=== PATIENT | female | born 1965 | race American Indian/Alaskan Native ===

== ENCOUNTER 2017-04-04 13:42 | Outpatient (CLI) | payer BC ==
--- NOTE | 2017-04-04 14:45 | Mammography Report ---
Bilateral mammogram: No previous studies are available. CAD study utilized. Findings: Predominance adipose tissue bilaterally. No mass or microcalcification. Benign axillary nodes. Impression: Benign findings. Annual followup recommended. BI-RADS CATEGORY: 2 = Benign ACR BI-RADS MAMMOGRAPHIC CODES: 0 = Needs additional imaging evaluation; 1 = Negative; 2 = Benign; 3 = Probably benign; 4 = Suspicious; 5 = Malignant; 6 = Known biopsy-proven malignancy COMMENT: 1. Dense breast tissue, i.e., adenosis, fibrocystic changes, etc., may obscure an underlying neoplasm. 2. Approximately 10% of cancers are not detected with mammography. 3. A negative mammography report should not delay biopsy if a clinically suspicious mass is present. COMMENT: Patient follow-up letters are generated in [employer].
== END 2017-04-04 13:43 | disposition home or self-care (01) ==
LOC: SPVWC 13:42
PROVIDERS: ATTEND Obstetrics & Gynecology Gynecology
DX: Z12.31 Encounter for screening mammogram for malignant neoplasm of breast (principal)
CPT/HCPCS: 77067; G0202

== ENCOUNTER → 2018-06-16 | Outpatient (CLI) | payer BC ==
--- NOTE | 2018-06-17 13:10 | Mammography Report ---
BILATERAL DIGITAL SCREENING MAMMOGRAM with CAD: 06/16/18 16:05:00 CLINICAL: Routine screening. COMPARISON:04/04/17 FINDINGS: The breasts are almost entirely fatty. Left asymmetries on the MLO view require additional imaging.No architectural distortion or suspicious calcifications.The right breast is negative. IMPRESSION: Left asymmetries requiring further workup. BI-RADS CATEGORY: 0 -- Additional Imaging Evaluation Required RECOMMENDATION: Recall for left exaggerated CC , LM, spot magnification MLO views and left breast ultrasound if needed. ACR BI-RADS MAMMOGRAPHIC CODES: 0 = Needs additional imaging evaluation; 1 = Negative; 2 = Benign; 3 = Probably benign; 4 = Suspicious; 5 = Malignant; 6 = Known biopsy-proven malignancy COMMENT: 1. Dense breast tissue, i.e., adenosis, fibrocystic changes, etc., may obscure an underlying neoplasm. 2. Approximately 10% of cancers are not detected with mammography. 3. A negative mammography report should not delay biopsy if a clinically suspicious mass is present. COMMENT: Patient follow-up letters are generated via our [employer] application.
== END | disposition home or self-care (01) ==
LOC: SPVWC 16:05
PROVIDERS: ATTEND Obstetrics & Gynecology Gynecology
DX: Z12.31 Encounter for screening mammogram for malignant neoplasm of breast (principal)
CPT/HCPCS: 77067

== ENCOUNTER 2018-07-21 05:59 | Observation (INO) | payer BC ==
[2018-07-16 10:29] LABS: Basophils # (Auto) 0.1 K/mm3 (0.0-0.1); Basophils % (Auto) 0.8 % (0.0-1.8); Eosinophils # (Auto) 0.1 K/mm3 (0.0-0.4); Eosinophils % (Auto) 0.8 % (0.0-4.3); Hematocrit 41.7 % (30.3-42.9); Hemoglobin 14.3 gm/dl (10.1-14.3); Lymphocytes # (Auto) 1.6 K/mm3 (1.2-5.4); Mean Corpuscular HGB Conc 34 % (30-34); Mean Corpuscular Hemoglobin 31 pg (28-32); Mean Corpuscular Volume 90 fl (79-97); Monocytes # (Auto) 0.7 K/mm3 (0.0-0.8); Monocytes % (Auto) 8.3 % (0.0-7.3); Platelet Count 230 K/mm3 (140-440); Red Blood Count 4.65 M/mm3 (3.65-5.03); Red Cell Distribution Width 13.6 % (13.2-15.2)
[2018-07-16 10:39] LABS: BUN/Creatinine Ratio 13; Blood Urea Nitrogen 9 mg/dL (7-17); Calcium 9.3 mg/dL (8.4-10.2); Hemolysis Index 6
--- NOTE | 2018-07-17 06:39 | Anesthesia Consultation ---
Anesthesia Consult and Med Hx Date of service: 07/17/18 - Airway Anesthetic Teeth Evaluation: Good ROM Head & Neck: Adequate Mental/Hyoid Distance: Adequate Mallampati Class: Class I Intubation Access Assessment: Good - Pulmonary Exam CTA: Yes - Cardiac Exam Cardiac Exam: RRR - Pre-Operative Health Status ASA Pre-Surgery Classification: ASA2 Proposed Anesthetic Plan: General Nerve Block: TAP block - Central Nervous System Hx Psychiatric Problems: No - Other Systems Hx Alcohol Use: Yes (Occas) Hx Cancer: No
--- NOTE | 2018-07-20 20:11 | History and Physical Report ---
History of Present Illness Date of examination: 07/13/18 Date of admission: 07/21/18 Chief complaint: irregular vaginal bleeding History of present illness: Pt presents with several months of vaginal bleeding that has been irregular. She has been on HRT for a number of years due to having both ovaries removed several several years ago and years apart. For several years she did not have a period until recently. Sono and embx were normal. Pt desires to d/c combined HRT and desires removal of the uterus at this time. All risk, benefits and alternatives were d/w pt and questions were addressed and answered. she desires to have LAVH. Consents have been signed and placed on the chart. Past History Past Surgical History: other (bilateral oopherectomy) Medications and Allergies Allergies Allergy/AdvReac Type Severity Reaction Status Date / Time No Known Allergies Allergy Unverified 07/14/18 11:16 Home Medications Medication Instructions Recorded Confirmed Last Taken Type [place]-3 Fatty Acids [Super Twin 1,250 mg PO DAILY 07/14/18 07/14/18 Unknown History Epa-Dha] Progesterone, Micronized 1 cap PO DAILY 07/14/18 07/14/18 Unknown History [Progesterone] Active Meds: Active Medications Cefazolin Sodium (Ancef/Sterile Water 2 Gm/20 Ml) 2 gm in 20 mls @ 80 mls/hr IV PREOP NR; Protocol Stop: 07/21/18 23:59 - Vital Signs Vital signs: Vital Signs Temp Pulse Resp BP 97.8 F 72 16 118/78 07/16/18 09:50 07/16/18 09:50 07/16/18 09:50 07/16/18 09:50 Temp Pulse Resp BP Pulse Ox 97.8 F 72 16 118/78 07/16/18 09:50 07/16/18 09:50 07/16/18 09:50 07/16/18 09:50 - Physical Exam Breasts: Positive: deferred Cardiovascular: Normal S1, Normal S2 Lungs: Positive: Clear to auscultation, Normal air movement Abdomen: Positive: normal appearance, soft. Negative: distention, tenderness, guarding Genitourinary (Female): Positive: normal external genitalia, normal perenium Vagina: Positive: normal moisture Uterus: Positive: normal size Extremities: Positive: normal. Negative: tenderness, edema Deep Tendon Reflex Grade: Normal +2 Results Result Diagrams: 07/16/18 10:00 07/16/18 10:00 All other labs normal. Assessment and Plan - Patient Problems (1) Post-menopausal bleeding Status: Acute Plan to address problem: -admit and prepare for lavh -all risk, benefits and alternatives were d/w pt and questions were addressed and answered.
[~2018-07-21 05:59] MED LIST: ANCEF/STERILE WATER 2 GM/20 ML 2 GM/20 ML SYRINGE IV NR
[2018-07-21] MEDS ORDERED: DILAUDID ONE (06:58)
[2018-07-21] MEDS ORDERED: DIPRIVAN 10 MG/ML IV ONE (06:58)
[2018-07-21] MEDS ORDERED: LACTATED RINGERS 1,000 ML IV SCH (06:59)
[2018-07-21] MEDS ORDERED: LACTATED RINGERS 1,000 ML ONE (07:10)
[2018-07-21] MEDS ORDERED: DECADRON IV NR (07:27)
[2018-07-21] MEDS ORDERED: PEPCID IV NR (07:27)
[2018-07-21] MEDS ORDERED: NACL 0.9% 100 ML ONE (07:30)
[2018-07-21] MEDS ORDERED: MARCAINE 0.5% INFILTRATI ONE ×2 (07:30→09:08)
[2018-07-21] MEDS ORDERED: Vasostrict ONE (07:30)
[2018-07-21] MEDS ORDERED: DILAUDID IV PRN ×2 (07:54)
[2018-07-21] MEDS ORDERED: TORADOL IV PRN (07:54)
[2018-07-21] MEDS ORDERED: ZOFRAN IV PRN ×2 (07:54→12:00)
[2018-07-21] MEDS ORDERED: TYLENOL PO PRN (07:54)
[2018-07-21] MEDS ORDERED: VERSED IV NR (08:00)
[2018-07-21] MEDS ORDERED: XYLOCAINE MPF 2% ONE (08:46)
[2018-07-21] MEDS ORDERED: ZEMURON IV ONE (08:46)
[2018-07-21] MEDS ORDERED: ZOFRAN ONE (08:46)
[2018-07-21] MEDS ORDERED: QUELICIN ONE (08:46)
[2018-07-21] MEDS ORDERED: DECADRON ONE (08:47)
[2018-07-21] MEDS ORDERED: Vasostrict IM ONE (09:08)
[2018-07-21] MEDS ORDERED: NACL 0.9% IR ONE (09:09)
[2018-07-21] MEDS ORDERED: NACL 0.9% IV ONE (09:09)
[2018-07-21] MEDS ORDERED: NACL 0.9% 1000 ML 1,000 ML ONE (09:15)
[2018-07-21] MEDS ORDERED: ROBINUL ONE (10:17)
[2018-07-21] MEDS ORDERED: BLOXIVERZ ONE (10:18)
[2018-07-21] MEDS ORDERED: TORADOL ONE (10:27)
[2018-07-21] MEDS ORDERED: MORPHINE IV PRN (10:41)
--- NOTE | 2018-07-21 10:41 | Operative Report ---
Operative Report Operative Report: Date of procedure: 07/21/2018 Pre-operative diagnosis: Post menopausal bleeding Post-operative diagnosis: Same Procedure name(s): Laparoscopic assisted vaginal hysterectomy Surgeon: Kaylee Castellanos MD Restaurant Crew Member: Dr. Hina Dixon Anesthesia: Gen. endotracheal anesthesia EBL: 50 mL Urine output: 300 mL of clear urine out at the end of the procedure Fluids: 1200 mL Findings: Evidence of absence of ovaries and tubes bilaterally. Grossly normal uterus. Female adhesions of the omentum to the uterine fundus. Indications: Patient presents with several years of being on HRT after having both ovaries removed. Patient noted to have vaginal bleeding that was getting progressively heavier with being on HRT. Patient desired definitive therapy with removal of uterus. Procedure: Patient was taken to the operating room where she was placed under general endotracheal anesthesia. She was then prepped and draped in sterile fashion. It was at this point that the large [employer] uterine manipulator was placed inside of the uterus after the uterus was sounded to approximately 9 cm. Dangelo catheter was also placed at this time. Attention was then turned to the umbilicus in which a supraumbilical incision was made. Under direct visualization the 5 mm trocar was placed inside the peritoneum the peritoneum was then insufflated. As at this point that the laparoscopic portion of the procedure was performed. 2 lateral 5 mm ports were also placed under direct visualization. Using the tripolar instrument the upper pedicles were cauterized and transected to the including round ligament with excellent hemostasis noted bilaterally. Attention was then turned vaginally. A weighted speculum was placed into the vagina and the cervix was grasped with a single-tooth tenaculum 2. The cervix was then injected circumferentially with Pitressin. The cervix was then circumferentially incised with the scalpel and the bladder dissected off of the pubovesical cervical fascia anteriorly with a sponge stick and Metzenbaum scissors. The same procedure was performed posteriorly and the posterior cul-de-sac was entered into sharply without difficulty. At this point a Keisha Clamp was placed over the uterosacral ligaments on either side. These were then transected and suture ligated with 0 Vicryl. Hemostasis was assured. The cardinal ligaments were then clamped on both sides transected and suture ligated in similar fashion. The uterine arteries were then serially clamped with Keisha clamps transected and suture ligated on both sides. Excellent hemostasis was visualized. After it was clear that the uterus had been completely from all pedicles the uterus was removed vaginally intact with cervix intact. The vaginal cuff angles were closed with figure of 8 stitches of 0 Vicryl on both sides. The peritoneum was incorporated in the stitching of the vaginal cuff. A series of interrupted figure of 8 sutures using 0 Vicryl were used to close the entire vaginal cuff. Excellent hemostasis was noted. The vagina was then irrigated copiously. Attention was then turned laparoscopically at which time Again all pedicles were noted to be hemostatic. The ureters were identified bilaterally with peristalsis noted bilaterally. All instruments were then removed from the abdomen and the vagina. All gas was released from the abdomen. The abdominal incisions were closed using 4-0 Monocryl. All of the abdominal incisions were injected with Marcaine without epi. Patient tolerated the procedure well sponge lap and needle counts were all correct 3 the patient was taken to the recovery room awake and in stable condition.
[2018-07-21] MEDS: NORCO 5/325 PO PRN (11:29)
[2018-07-21] MEDS: D5LR 1,000 ML IV SCH ×2 (11:44→20:38)
[2018-07-21] MEDS ORDERED: ANCEF/NS 1 GM/50 ML 1 GM/50 ML BAG IV SCH (14:00)
[2018-07-21] MEDS: ANCEF/NS 1 GM/50 ML 1 GM/50 ML BAG IV SCH (17:34)
[2018-07-21] MEDS: TORADOL IV SCH (22:24)
[2018-07-22] MEDS: D5LR 1,000 ML IV SCH (02:27)
[2018-07-22] MEDS: ANCEF/NS 1 GM/50 ML 1 GM/50 ML BAG IV SCH (02:33)
[2018-07-22] MEDS: TORADOL IV SCH (04:18)
[2018-07-22 05:38] LABS: Hematocrit 36.8 % (30.3-42.9); Hemoglobin 12.4 gm/dl (10.1-14.3)
--- NOTE | 2018-07-22 09:02 | Progress Note ---
Assessment and Plan - Patient Problems (1) Post-menopausal bleeding Current Visit: No Status: Acute (2) S/P laparoscopic assisted vaginal hysterectomy (LAVH) Current Visit: Yes Status: Acute Plan to address problem: -ROUTINE POST OP CARE -D/C HOME TODAY Subjective - Subjective Date of service: 07/22/18 Principal diagnosis: POD #1 s/p LAVH Interval history: Pt presents with several months of vaginal bleeding that has been irregular. She has been on HRT for a number of years due to having both ovaries removed several several years ago and years apart. For several years she did not have a period until recently. Sono and embx were normal. Pt desires to d/c combined HRT and desires removal of the uterus at this time. All risk, benefits and alternatives were d/w pt and questions were addressed and answered. she desires to have LAVH. Consents have been signed and placed on the chart. Patient reports: appetite normal, voiding normally, pain well controlled, flatus , no dizzy ambulation Objective - Vital Signs Latest vital signs: Vital Signs Temp Pulse Resp BP BP Pulse Ox 07/22/18 04:00 98.7 F 81 18 121/78 07/22/18 00:00 98.7 F 78 16 114/78 07/21/18 19:30 98.7 F 77 18 109/69 07/21/18 15:50 97.2 F L 95 H 18 112/61 97 07/21/18 12:24 97.6 F 68 16 124/59 100 07/21/18 11:45 97.6 F 65 12 116/58 100 07/21/18 11:30 72 14 106/55 100 07/21/18 11:29 12 07/21/18 11:15 67 14 116/61 99 07/21/18 11:05 62 16 115/60 100 07/21/18 11:00 63 63 H 113/59 100 07/21/18 10:50 61 13 112/53 99 07/21/18 10:45 63 14 109/57 99 07/21/18 10:43 97.5 F L 66 18 111/50 99 Intake and Output 07/21/18 07/22/18 07/22/18 22:59 06:59 14:59 Intake Total 1050 1027.083 Output Total 2800 Balance 1050 -1772.917 Intake: IV 1050 727.083 ANCEF/NS 1 GM/50 ML 1 gm 50 In 50 ml @ 100 mls/hr IV Q8H DAVONTE Rx#:[id number] D5lr 1,000 ml @ 125 mls/ 1000 727.083 hr IV DIRECT DAVONTE Rx#: [id number] Intake, Free Water 300 Output: Urine 2800 Indwelling Catheter 2800 Other: Total, Output Amount 1200 Voiding Method Indwelling Catheter - Exam Cardiovascular: Present: Normal S1, Normal S2 Lungs: Present: Clear to auscultation, Normal air movement Abdomen: Present: normal appearance, soft, normal bowel sounds. Absent: distention, tenderness, guarding Extremities: Present: normal. Absent: tenderness, edema Incision: Present: normal, dry, intact (OPEN TO AIR)
--- NOTE | 2018-07-22 09:04 | Discharge Summary ---
Providers - Providers Date of Admission: 07/21/18 10:42 Date of discharge: 07/22/18 Attending physician: SIM SMITH Primary care physician: [facility] Hospitalization Reason for admission: other (lavh) Procedure: other (LAVH) Incision: normal, dry, intact Hospital course: Pt doing well and desires to go home today. + toleration of her regular diet this am w/o nausea. h/h is stable. Will d/c home today. Condition at discharge: Good Disposition: DC-01 TO HOME OR SELFCARE - Discharge Diagnoses (1) Post-menopausal bleeding Status: Acute (2) S/P laparoscopic assisted vaginal hysterectomy (LAVH) Status: Acute Plan - Discharge Medications Prescriptions: Ibuprofen 800 mg PO Q6HR #30 tablet oxyCODONE /ACETAMINOPHEN [Percocet 5/325] 1 tab PO Q4HR #30 tab - Provider Discharge Summary Activity: routine, no sex for 6 weeks, no heavy lifting 4 weeks Additional instructions: [] Smoking cessation referral if applicable(refer to patient education folder for contact #) [] Refer to [facility] Booklet Call your doctor immediately for: * Fever > 100.5 * Heavy vaginal bleeding ( >1 pad per hour) * Severe persistent headache * Shortness of breath * Reddened, hot, painful area to leg or breast * Drainage or odor from incision. * Keep incision clean and dry at all times and follow doctor's instructions regarding bathing/showering - Follow up plan Follow up: PRIMARY CARE, [Primary Care Provider] - 7 Days
[2018-07-22 09:09] VITALS: BP 114/55
[2018-07-22] MEDS: NORCO 5/325 PO PRN (09:44)
== END 2018-07-22 10:00 | disposition home or self-care (01) ==
LOC: OR 05:59 → OB 10:42
PROVIDERS: ADMIT Obstetrics & Gynecology; ATTEND Obstetrics & Gynecology
DX: N95.0 Postmenopausal bleeding (principal); Z72.89 Other problems related to lifestyle
CPT/HCPCS: 36415; 58550; 80048; 84703; 85014; 85018; 85025; 86850; 86900; 86901; 88307; 96365; 96366; 96375; 96376; G0378; J0330; J0690; J1100; J1170; J1885; J2250; J2270; J2405; J2704; J2710; J7030; J7120; J7121

== ENCOUNTER 2019-12-23 13:47 | Outpatient (CLI) | payer BC ==
--- NOTE | 2019-12-23 14:59 | Mammography Report ---
DIGITAL SCREENING MAMMOGRAM WITH CAD, 12/23/2019 INDICATION: Routine screening mammography. TECHNIQUE: Digital bilateral 2D mammography was obtained in the craniocaudal and mediolateral obliq ue projections. This examination was interpreted with the benefit of Computer-Aided Detection analysi s. COMPARISON: 06/16/2018 FINDINGS: Breast Density: The breasts are almost entirely fatty. There is no evidence of dominant mass, suspicious calcifications or architectural distortion in eithe r breast. IMPRESSION: No mammographic evidence of malignancy. Follow up recommendation: Routine yearly BI-RADS Category 1: Negative. A "normal" or negative report should not discourage follow up or biopsy of a clinically significant f inding. A written summary of these findings will be mailed to the patient. The patient will be entered into a mammography reporting system which will generate a reminder letter for the patient's next appointmen t at the appropriate interval. The [employer] recommends yearly mammograms starting at age 40 and continuing as l melecio as a woman is in good health. Breast MRI is recommended for women with an approximate 20-25% or greater lifetime risk of breast cancer, including women with a strong family history of breast or ova momo cancer or who have been treated for Hodgkin's disease. Signer Name: Guillermo Castro MD Signed: 12/23/2019 2:54 PM Workstation Name: [id number]
== END 2019-12-23 13:48 | disposition home or self-care (01) ==
LOC: SPVWC 13:47
PROVIDERS: ATTEND Obstetrics & Gynecology
DX: Z12.31 Encounter for screening mammogram for malignant neoplasm of breast (principal); N64.89 Other specified disorders of breast
CPT/HCPCS: 77067

== ENCOUNTER 2020-12-29 10:19 | Outpatient (CLI) | payer BC | END 2020-12-29 10:20 | disposition home or self-care (01) | LOC: SPVWC 10:19 | PROVIDERS: ATTEND Obstetrics & Gynecology | DX: Z12.31 Encounter for screening mammogram for malignant neoplasm of breast (principal) | CPT/HCPCS: 77067 ==

== ENCOUNTER 2022-07-24 14:33 | Outpatient (CLI) | payer BC ==
--- NOTE | 2022-07-26 11:03 | Mammography Report ---
DIGITAL SCREENING MAMMOGRAM WITH TOMOSYNTHESIS WITH CAD, 07/24/2022 CLINICAL INFORMATION / INDICATION: Routine Screening Mammography. SCREENING MAMMO Z12.31. TECHNIQUE: Digital bilateral 2D and 3D mammography with tomosynthesis was obtained in the craniocauda l and mediolateral oblique projections. Computer-Aided Detection (CAD) analysis was used for interpr etation of this study. COMPARISON: Prior mammogram 12/29/2020 and 12/23/2019 FINDINGS: Breast Density: The breasts are almost entirely fatty. No dominant mass, suspicious calcifications, or architectural distortion in either breast. There has been no significant change compared with the prior examinations. IMPRESSION: No mammographic evidence of malignancy. Follow up recommendation: Routine yearly screening mammogram. BI-RADS Category 1: NEGATIVE A "normal" or negative report should not discourage follow up or biopsy of a clinically significant f inding. A written summary of these findings will be mailed to the patient. The patient will be entered into a mammography reporting system which will generate a reminder letter for the patient's next appointmen t at the appropriate interval. The [employer] recommends yearly mammograms starting at age 40 and continuing as l melecio as a woman is in good health. Breast MRI is recommended for women with an approximate 20-25% or greater lifetime risk of breast cancer, including women with a strong family history of breast or ova momo cancer or who have been treated for Hodgkin's disease. Signer Name: Nuria Celis MD Signed: 07/26/2022 10:59 AM Workstation Name: [id number]
== END 2022-07-24 14:34 | disposition home or self-care (01) ==
LOC: SPVWC 14:33
PROVIDERS: ATTEND Obstetrics & Gynecology
DX: Z12.31 Encounter for screening mammogram for malignant neoplasm of breast (principal)
CPT/HCPCS: 77063; 77067